=== PATIENT | male | born 1990 | race African-American/Black ===

== ENCOUNTER 2016-09-08 02:05 | Emergency (ER) | payer OTHER ==
[~2016-09-08 02:05] MED LIST: SULFACETAMIDE S15 ML OPH
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
[2016-09-08 02:23] VITALS: BP 146/86
[2016-09-09] MEDS ORDERED: ABILIFY5 M1 PO (16:49)
== END 2016-09-08 02:27 ==
LOC: ERH 02:05
DX: F32.9 Major depressive disorder, single episode, unspecified (principal)

== ENCOUNTER 2016-09-09 16:09 | Emergency (ER) | payer OTHER ==
[~2016-09-09] VITALS: Ht 185.4 cm; Wt 140.6 kg
[2016-09-09 16:22] VITALS: BP 143/83
--- NOTE | 2016-09-09 16:40 | ED GENERAL ADULT ---
History of Present Illness General Chief Complaint: General Adult Stated Complaint: MED REFILL Source: patient, family, old records Exam Limitations: no limitations Vital Signs & Intake/Output Vital Signs & Intake/Output Vital Signs Date Time Temp Pulse Resp B/P B/P Pulse O2 O2 Flow FiO2 Mean Ox Delivery Rate 09/09 1622 97.4 76 16 143/83 98 Room Air Allergies Coded Allergies: NO KNOWN ALLERGIES (10/08/15) Reconcile Medications Aripiprazole (Abilify) 5 MG TABLET 1 TAB PO DAILY mental health Sulfacetamide Sodium 15 ML DROPS 2 GTT OPH 4 TIMES/DAY conjunctivitis Triage Note: PT HERE FOR MED REFILL ON HIS ARIPIPRAXOLE 5 MG Triage Nurses Notes Reviewed? yes Onset: Abrupt Duration: week(s): (1), constant Timing: recent history Injury Environment: home Severity: mild Severity Numbers: 3 No Modifying Factors: none Associated Symptoms: DENIES HPI: 25-year-old male presents emergency room requesting refill of his Abilify which she's been out of for the past 1 week. He takes 5 mg once a day. He is been unable to follow-up with his therapist tomorrow prescribes this. Patient is a chronic wishing to speak with crisis he denies depression and anxiety recently stressors. He denies SI or HI no chest pain shortness of breath. Pain fever or chills he is otherwise without any complaints at this time (RAHEL INGRAM) Past History Travel History Traveled to [place] past 21 day No Medical History Any Pertinent Medical History? 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 No (RAHEL INGRAM) Review of Systems Review of Systems Constitutional: Reports: see HPI. All Other Systems: Reviewed and Negative Comments Review of systems: See HPI, All other systems negative. Constitutional, no chills no fever, no malaise HEENT: No visual changes no sore throat no congestion, Cardiovascular: No chest pain , no palpitation Skin: no rashes, no change in skin Respiratory: No dyspnea no cough no sputum no hemoptysis GI: No nausea no vomiting, Muscle skeletal: No joint pain, no back pain, no neck pain, Neurologic:no headache Psych: No stress Heme/endocrine: No bruising Immunology: No lymphadenopathy (RAHEL INGRAM) Physical Exam Physical Exam General Appearance: well developed/nourished, no apparent distress, alert, awake , comfortable Comments: Well-developed well-nourished patient in no apparent distress. HEENT: Atraumatic, extraocular motion intact Neck: Supple, FROM Back: FROM Cardiovascular: Regular rate and rhythms no murmurs rubs Respiratory: No respiratory distress. Patient speaking in full complete sentences. Breath sounds clear to auscultation bilaterally: NO W/R/R Extremities: full range of motion Neuro: awake, alert, and oriented to person, place and time. There were no obvious focal neurologic abnormalities. Skin: Warm & dry;No appreciable rash on exposed skin Psych: Mood affect normal, normal memory normal judgment. Core Measures ACS in differential dx? No CVA/TIA Diagnosis: No Severe Sepsis Present: No Septic Shock Present: No (RAHEL INGRAM) Progress Differential Diagnoses I considered the following diagnoses in my evaluation of the patient: Medication refill anxiety depression Plan of Care: Discussed the patient plan of care he feels comfortable plan prescription for Abilify provided, Pt is declining wishing to speak with crisis when offered Initial ED EKG: none (RAHEL INGRAM) Departure Departure Time of Disposition: 1647 Disposition: HOME OR SELF CARE Condition: Stable Clinical Impression Primary Impression: Medication refill Referrals: GARRETT RICHARD MD (PCP/Family) Additional Instructions: abilify as directed. this was sent to [facility]. follow up with your pmd as well as care. return with any concerns Departure Forms: Customer Survey General Discharge Information Prescriptions: Current Visit Scripts Aripiprazole (Abilify) 1 TAB PO DAILY #30 TAB (RAHEL INGRAM) PA/STUDENT DEAN Co-Sign Statement Statement: ED Attending supervision documentation- [] I saw and evaluated the patient. I have also reviewed all the pertinent lab results and diagnostic results. I agree with the findings and the plan of care as documented in the PA's/STUDENT DEAN's documentation. [x] I have reviewed the ED Record and agree with the PA's/STUDENT DEAN's documentation. [] Additions or exceptions (if any) to the PAs/STUDENT DEAN's note and plan are summarized below: [] (DORCAS BAKER DO) Critical Care Note Critical Care Note Critical Care Time: non-applicable (RAHEL INGRAM)
[2016-09-09] MEDS ORDERED: ABILIFY5 M1 PO (16:49)
== END 2016-09-09 17:04 ==
LOC: ERH 16:09
DX: Z76.0 Encounter for issue of repeat prescription (principal)
CPT/HCPCS: 99281